=== PATIENT | male | born 1995 | race Two or more races ===

== ENCOUNTER 2021-09-26 15:06 | Emergency (ER) | payer OTHER ==
[~2021-09-26] VITALS: Ht 175.3 cm; Wt 63.5 kg
[2021-09-26] MEDS ORDERED: KETO10TA2 PO (21:19)
[2021-09-26] MEDS ORDERED: TAMS0.4C PO (21:19)
[2021-09-26] MEDS ORDERED: CIPRO500 MG PO (21:19)
== END 2021-09-26 21:43 | disposition home or self-care (01) ==
LOC: ER 15:06
DX: N20.9 Urinary calculus, unspecified (principal)

== ENCOUNTER 2021-09-28 17:02 | Emergency (ER) | payer OTHER ==
[~2021-09-28] VITALS: Ht 175.3 cm; Wt 63.5 kg
[~2021-09-28 17:02] MED LIST: CIPRO500 MG PO; KETO10TA2 PO; TAMS0.4C PO
[2021-09-29] MEDS ORDERED: PERCOCET 5-3251 EACH PO (20:25)
[2021-09-29] MEDS ORDERED: ONDANSETRON ODT4 MG PO (20:25)
[2021-09-29] MEDS ORDERED: PEPCID AC20 MG PO (20:25)
== END 2021-09-29 20:45 ==
LOC: ER 17:02
DX: N20.1 Calculus of ureter (principal); R10.9 Unspecified abdominal pain; Z87.442 Personal history of urinary calculi; Z03.818 Encounter for observation for suspected exposure to other biological agents ruled out

== ENCOUNTER 2021-10-15 15:09 | Emergency (ER) | payer OTHER ==
[~2021-10-15] VITALS: Ht 175.3 cm; Wt 81.6 kg
[~2021-10-15 15:09] MED LIST changes: +ONDANSETRON ODT4 MG PO; +PEPCID AC20 MG PO; +PERCOCET 5-3251 EACH PO
[2021-10-15] MEDS ORDERED: TYLENOL (16:53)
== END 2021-10-15 19:56 ==
LOC: ER 15:09
DX: B34.9 Viral infection, unspecified (principal); Z20.822 Contact with and (suspected) exposure to COVID-19